=== PATIENT | female | born 1975 | race Caucasian/White ===

== ENCOUNTER 2021-10-01 01:53 | Emergency (ER) | payer OTHER ==
[2021-10-01 03:30] LABS: BASO # 0.1 10*3/uL (0.0-0.1); BASO % 0.8 % (0.0-1.0); EOS # 0.1 10*3/uL (0.0-0.4); EOS % 0.6 % (1.0-4.0); LYMPH # 3.4 10*3/uL (1.3-4.4); LYMPH % 30.7 % (27.0-41.0); MEAN CELL VOLUME 89.9 fl (81.0-99.0); MEAN CORPUSCULAR HGB 31.4 pg (27.0-31.0); MEAN CORPUSCULAR HGB CONC 34.9 g/dl (33.0-37.0); MONO # 0.9 10*3/uL (0.1-1.0); MONO % 7.7 % (3.0-9.0); NEUT # 6.7 10*3/uL (2.3-7.9); NEUT % 59.7 % (47.0-73.0); PLATELET COUNT AUTOMATED 311 10*3/uL (130-400); RED BLOOD COUNT 4.56 10*6/uL (4.10-5.10); RED CELL DISTRI WIDTH 12.4 % (0-14.5); WHITE BLOOD COUNT 11.2 10*3/uL (4.8-10.8)
[2021-10-01 03:45] LABS: ALKALINE PHOSPHATASE 57 U/L (45-117); BUN 23 mg/dl (7-24); CHLORIDE 108 mmol/L (98-107); CPK 287 U/L (26-192); CREATININE 1.17 mg/dL (0.55-1.02); SGOT/AST 19 IU/L (3-35); SGPT/ALT 19 U/L (12-78); SODIUM 135 mmol/L (136-145); TOTAL PROTEIN 7.3 gm/dL (6.4-8.2)
[2021-10-01 03:49] LABS: ACETAMINOPHEN (TYLENOL) < 5.0 ug/ml (10-30); ETHYL ALCOHOL < 3.0 mg/dl (<3)
[2021-10-01 04:27] LABS: BILIRUBIN Negative (Negative); BLOOD 1+ (Negative); CLARITY Cloudy (Clear); COLOR Yellow (Yellow); GLUCOSE Negative (Negative); KETONE 1+ (Negative); LEUKO ESTERASE 2+ (Negative); NITRITE Negative (Negative); SPECIFIC GRAVITY 1.015 (1.001-1.030)
[2021-10-01 04:35] LABS: URINE AMPHETAMINES < 1000 (1000ng/ml); URINE BARBITURATES < 200 (200ng/ml); URINE BENZODIAZEPINES < 200 (200ng/ml); URINE CANNABINOIDS (THC) > 50 (50ng/ml); URINE COCAINE < 300 (300ng/ml); URINE METHADONE < 300 (300ng/ml); URINE OPIATES < 300 (300ng/ml)
[2021-10-01 04:45] LABS: URINE PHENCYCLIDINE < 25 (25ng/ml)
[2021-10-01 04:47] LABS: BACTERIA 2+; EPITHELIAL CELLS 31-40; WBC 21-30 wbc/hpf (0-5)
[2021-10-01] MEDS ORDERED: 'CLONIDINE0.1 MG PO (14:59)
[2021-10-01] MEDS ORDERED: HYDROXYZINE PAM25 M1 PO (15:00)
[2021-10-01] MEDS ORDERED: LAMOTRIGINE25 M1 PO (15:00)
[2021-10-01] MEDS ORDERED: ALPRAZOLAM0.5 M3 PO (15:01)
[2021-10-01] MEDS ORDERED: MONTELUKAST SOD10 MG PO (15:01)
[2021-10-01] MEDS ORDERED: ALLERGY RELIEF25 MG PO (15:03)
[2021-10-01] MEDS ORDERED: MELATONIN10 M4 PO (15:04)
[2021-10-01] MEDS ORDERED: LEADER ASPIRIN325 MG PO (15:04)
[2021-10-01] MEDS ORDERED: DULCOLAX5 M1 PO (15:05)
== END 2021-10-02 10:20 ==
LOC: ED 01:53
PROVIDERS: Emergency Medicine
DX: F29 Unspecified psychosis not due to a substance or known physiological condition (principal); Z20.822 Contact with and (suspected) exposure to COVID-19